=== PATIENT | male | born 1980 | race Two or more races ===

== ENCOUNTER 2018-06-09 16:22 | Emergency (ER) | payer MEDICAID ==
[~2018-06-09] VITALS: Ht 180.3 cm; Wt 104.3 kg
[2018-06-09 16:54] VITALS: BP 138/95
[2018-06-09] MEDS ORDERED: FLUORESCEIN SODIUM OPHTH 1 EA STRIP ONE (16:59)
[2018-06-09] MEDS ORDERED: TETRACAINE HCL/PF 0.5% UD 2 ML BOTTLE ONE (16:59)
== END 2018-06-09 17:29 | disposition home or self-care (01) ==
LOC: ER 16:25
DX: T15.01XA Foreign body in cornea, right eye, initial encounter (principal); X58.XXXA Exposure to other specified factors, initial encounter; Y93.89 Activity, other specified; Y92.830 Public park as the place of occurrence of the external cause; Y99.8 Other external cause status
CPT/HCPCS: A4606; Z7610